=== PATIENT | male | born 1985 | race Caucasian/White ===

== ENCOUNTER 2018-08-20 22:27 | Emergency (ER) | payer SELFPAY ==
[2018-08-20 22:28] VITALS: BP 140/89; PULSE 103; RESP 18; TEMP 36.8; O2SAT 99; BMI 50.5
--- NOTE | 2018-08-20 22:45 | EKG12_ITS ---
Test Reason : DIZZINESS Blood Pressure : / mmHG Vent. Rate : 074 BPM Atrial Rate : 074 BPM P-R Int : 148 ms QRS Dur : 092 ms QT Int : 336 ms P-R-T Axes : 039 -01 021 degrees QTc Int : 372 ms Normal sinus rhythm Normal ECG Confirmed by SELMA MANELY ([id number]), clinical editor EVERARDO SOLIS ([id number] on 08/23/2018 4:45:09 PM Referred By: JOEL Confirmed By:SELMA MANLEY
--- NOTE | 2018-08-20 22:47 | ED.DCSUM_ITS ---
- ER Visit Summary Date of Service: 08/20/18 Chief Complaint: Lightheaded History of Present Illness: The patient is a 33 M who presents the emergency room following an episode of lightheadedness. Patient states that he had about 6-7 hours of sleep last night which is not uncommon for him. He woke around 1300 hrs. He states that he drinks a large amount of coffee today drinking slightly less than normal but in a short amount of time. He was sitting in his office. The hospital when he states he got very lightheaded. He was not sweaty. Not short of breath. No pain. He states he had not had that experience before he denies any chest pain or palpitations. He states he drank some water and ate some food and started feeling better but still not back to his normal self. No recent infections. No fevers. No recent illnesses. No medications has no allergies. No primary care physician. Physical Examination: Afebrile vital signs are stable Gen: Well-nourished well-developed Head: Normocephalic atraumatic Eyes: Perrl EOMI ENT: TMs clear no rhinorrhea moist mucous membranes Neck: Supple no lymphadenopathy no JVD nontender CVS: Regular rate rhythm no murmurs normal S1-S2 Respiratory: No distress clear to auscultation bilaterally chest nontender Abdomen: Soft nontender nondistended normal bowel sounds no masses Back: Nontender Extremity: Nontender no edema Skin: Normal color no rash Neuro: alert orientated ?3 CN II-XII intact normal strength sensation reflexes gait cerebellar Psych: Normal affect normal mood Test Results: EKG, CBC, and BMP were obtained. These were normal. Normal intervals. Emergency Department Course and Treatment: Patient had no events on the monitor. He feels back to his normal self. Patient will be discharged home and advised him to follow-up with primary care return if worsening or concerns. Impression: 1. Lightheadedness This note was generated with [employer] dictation software. It may contain incorrect words, spelling, and punctuation that were not noted in review of the chart prior to signing ED Disposition - Plan for ED Patient: Disposition: Home or Assisted Living Instructions: ED Dizziness [facility] Referrals: Liam Pérez MD [STAFF PHYSICIAN] - As Needed Additional Instructions: Return if worsening or concerns. You may also follow-up with primary care physician above.
--- NOTE | 2018-08-20 22:53 | ED.RN ---
NO OLD EKGS IN MUSE
[2018-08-20 23:19] LABS: Anion Gap 6 (5-15); BUN 16 mg/dL (7-18); BUN/Creat Ratio 14.3 RATIO (10-20); Chloride 104 mmol/L (98-107); Creatinine, Serum 1.12 mg/dL (0.70-1.30); EST Glomerular Filtration Rate 81 mL/min (>60); Est Glom Filt Rate - Afr Amer 98 mL/min (>60); Estimated Creatinine Clearance 97.77 ml/min; Glucose 132 mg/dL (74-106); Potassium 3.8 mmol/L (3.5-5.1); Sodium Level 139 mmol/L (136-145)
[2018-08-20 23:34] LABS: Absolute Lymphocyte Count 1.99 X10^3/ul (0.83-4.51); Absolute Neutrophil Count 3.9 X10^3/uL (2.0-7.7); Basophil# 0.03 X10^3/uL; Basophil% 0.4 % (0-1); Eosinophil# 0.13 X10^3/uL; Eosinophils% 1.9 % (0-5); Hematocrit 45.2 % (40-54); Hemoglobin 15.7 g/dl (13.0-16.5); Lymphocyte # 1.99 X10^3/ul (4.0); Lymphocyte % 29.7 % (19-41); Mean Corp Hgb Conc 34.7 g/gl (32-36); Mean Corpuscular Hgb 30.3 pg (27.0-32.0); Mean Corpuscular Volume 87.3 fL (80-94); Mean Platelet Vol. 11.2 fl (6.2-12.0); Monocyte# 0.64 X10^3/uL; Monocyte% 9.6 % (0-10); Neutrophil # 3.88 X10^3/uL (2.7-7.7); Neutrophil % 58.1 % (47-70); Platelet Count 230 K/mm3 (150-450); RBC Distribution Width CV 12.3 % (11.6-14.6); RBC Distribution Width SD 39.5 fl (35.1-43.9); Red Blood Count 5.18 M/mm3 (4.6-6.2); White Blood Count 6.7 K/mm3 (4.4-11.0)
[2018-08-20 23:35] LABS: POSITIVE COUNT NO; POSITIVE DIFFERENTIAL NO; POSITIVE MORPHOLOGY NO
[2018-08-21 00:07] VITALS: BP 133/97; PULSE 78; RESP 17; O2SAT 98
== END 2018-08-21 00:05 | disposition home or self-care (01) ==
PROVIDERS: Emergency Provider Emergency Medicine
DX: R42 Dizziness and giddiness (principal)
CPT/HCPCS: 80048; 85025; 93005; 99285